=== PATIENT | female | born 1970 | race Caucasian/White ===

== ENCOUNTER → 2019-05-06 09:08 | Outpatient (CLI) | payer OTHER, SELFPAY ==
--- NOTE | 2019-05-06 | DI.MG.S_ITS ---
BILATERAL DIGITAL SCREENING MAMMOGRAM 3D/2D WITH CAD: 05/06/2019 CLINICAL: Routine screening. Comparison is made to exams dated: 05/12/2017 mammogram, 05/25/2015 mammogram, and 04/29/2014 mammogram - [facility]. The tissue of both breasts is heterogeneously dense. This may lower the sensitivity of mammography. Current study was also evaluated with a Computer Aided Detection (CAD) system. No significant masses, calcifications, or other findings are seen in either breast. There has been no significant interval change. IMPRESSION: NEGATIVE There is no mammographic evidence of malignancy. A 1 year screening mammogram is recommended. This exam was interpreted at Station ID: [id number]. NOTE: For mammograms, a report in lay terms will be sent to the patient. Approximately 15% of breast malignancies will not be visualized mammographically. In the management of a palpable breast mass, a negative mammogram must not discourage biopsy of a clinically suspicious lesion. Electronically Signed By: Goran adams/jewel:05/07/2019 06:22:55 letter sent: Normal Exam ACR BI-RADS Category 1: Negative [id number]
== END ==
PROVIDERS: PCP Family Medicine; Visit Provider Obstetrics & Gynecology
DX: Z12.31 Encounter for screening mammogram for malignant neoplasm of breast (principal)
CPT/HCPCS: 77063; 77067

== ENCOUNTER → 2019-11-25 14:25 | Outpatient (CLI) | payer OTHER, SELFPAY ==
[2019-11-25 16:13] LABS: Thyroid Stimulating Hormone 1.13 uIU/mL (0.47-4.68)
== END ==
PROVIDERS: PCP Family Medicine; Visit Provider Internal Medicine Endocrinology, Diabetes & Metabolism
DX: E89.0 Postprocedural hypothyroidism (principal)
CPT/HCPCS: 36415; 84443

== ENCOUNTER → 2020-07-19 17:43 | Outpatient (CLI) | payer OTHER, SELFPAY ==
--- NOTE | 2020-07-19 17:57 | DI.MG.S_ITS ---
Patient Name: KRYSTAL GOLD date: 1970 Sex: F Attending Physician: Alejo Indications: Date: 07/19/2020 17:51 At the request of: REGINE KAPOOR Procedure: MM screening mammo BI BILATERAL DIGITAL SCREENING MAMMOGRAM 3D/2D WITH CAD: 07/19/2020 CLINICAL: Routine screening. Comparison is made to exams dated: 05/06/2019 mammogram, 05/12/2017 mammogram, 05/25/2015 mammogram, 04/29/2014 mammogram, and 11/03/2012 mammogram - [facility]. The tissue of both breasts is heterogeneously dense. This may lower the sensitivity of mammography. Current study was also evaluated with a Computer Aided Detection (CAD) system. No significant masses, calcifications, or other findings are seen in either breast. There has been no significant interval change. IMPRESSION: NEGATIVE There is no mammographic evidence of malignancy. A 1 year screening mammogram is recommended. This exam was interpreted at Station ID: [id number]. NOTE: For mammograms, a report in lay terms will be sent to the patient. Approximately 15% of breast malignancies will not be visualized mammographically. In the management of a palpable breast mass, a negative mammogram must not discourage biopsy of a clinically suspicious lesion. Electronically Signed By: Ray herrera/jewel:07/20/2020 08:46:45 letter sent: Normal Exam ACR BI-RADS Category 1: Negative [id number]
== END ==
PROVIDERS: PCP Family Medicine; Referring Provider Family Medicine; Visit Provider Family Medicine
DX: Z12.31 Encounter for screening mammogram for malignant neoplasm of breast (principal)
CPT/HCPCS: 77063; 77067

== ENCOUNTER → 2020-10-03 11:58 | Outpatient (CLI) | payer OTHER, SELFPAY ==
--- NOTE | 2020-10-03 12:01 | DI.RAD.S_ITS ---
PROCEDURE: XR KNEE LT 3V INDICATIONS: knee pain TECHNIQUE: 3 views of the knee were acquired. COMPARISON: None. FINDINGS: Bones: No fractures or dislocations. No suspicious bony lesions. Mild medial compartment knee joint space narrowing, minimal narrowing at the lateral facet of the patellofemoral joint. Soft tissues: No joint effusion. No suspicious soft tissue calcifications. IMPRESSION: Degenerative osteoarthritic changes as discussed mild at the medial compartment and minimal at the lateral facet of the patellofemoral joint. Dictated by: Cresencio Rasmussen M.D. on 10/03/2020 at 13:05 Approved by: Cresencio Rasmussen M.D. on 10/03/2020 at 13:15
--- NOTE | 2020-10-03 12:01 | DI.RAD.S_ITS ---
PROCEDURE: XR SHOULDER RT MIN 2V INDICATIONS: SHOULDER PAIN TECHNIQUE: 3 views of the shoulder were acquired. COMPARISON: None. FINDINGS: Bones: No fractures or dislocations. No suspicious bony lesions. Visualized ribs appear intact. Soft tissues: No suspicious soft tissue calcifications. IMPRESSION: No trauma found. Mild degenerative osteoarthritic change at the AC joint. Dictated by: Cresencio Rasmussen M.D. on 10/03/2020 at 13:15 Approved by: Cresencio Rasmussen M.D. on 10/03/2020 at 13:16
== END ==
PROVIDERS: PCP Family Medicine; Referring Provider Physical Medicine & Rehabilitation; Visit Provider Physical Medicine & Rehabilitation
DX: M75.40 Impingement syndrome of unspecified shoulder (principal); M19.011 Primary osteoarthritis, right shoulder; M17.12 Unilateral primary osteoarthritis, left knee
CPT/HCPCS: 73030; 73562

== ENCOUNTER → 2021-02-13 11:11 | Outpatient (CLI) | payer OTHER, SELFPAY ==
[2021-02-13] MEDS: COVID-19 VACC #1, MRNA(MOD) 100 MCG/0.5 ML VIAL IM (11:21)
== END ==
PROVIDERS: PCP Family Medicine; Visit Provider Internal Medicine
DX: Z23 Encounter for immunization (principal)
CPT/HCPCS: 0011A; 91301

== ENCOUNTER → 2021-03-14 10:53 | Outpatient (CLI) | payer OTHER, SELFPAY ==
[2021-03-14] MEDS: COVID-19 VACC #2, MRNA(MOD) 100 MCG/0.5 ML VIAL IM (10:57)
== END ==
PROVIDERS: PCP Family Medicine; Visit Provider Internal Medicine
DX: Z23 Encounter for immunization (principal)
CPT/HCPCS: 0012A; 91301

== ENCOUNTER → 2021-03-22 13:53 | Outpatient (CLI) | payer OTHER, SELFPAY ==
[2021-03-22 16:07] LABS: Thyroid Stimulating Hormone 1.26 uIU/mL (0.47-4.68)
== END ==
PROVIDERS: PCP Internal Medicine Endocrinology, Diabetes & Metabolism; Referring Provider Internal Medicine Endocrinology, Diabetes & Metabolism; Visit Provider Internal Medicine Endocrinology, Diabetes & Metabolism
DX: E89.0 Postprocedural hypothyroidism (principal)
CPT/HCPCS: 36415; 84443

== ENCOUNTER 2021-08-09 10:30 | Outpatient (RCR) | payer OTHER, SELFPAY ==
--- NOTE | 2021-07-11 10:30 | PT.OPPOC ---
Physical, Occupational & Speech Therapy At [facility] Current Diagnoses Pain in right shoulder (07/11/21) Pain in left shoulder (07/11/21) Cervicalgia (07/11/21) Visit Care Team Role Provider Type Miladys Dhillon DO Attending Provider Physician Primary Care Provider Referring Provider Specialty: Family Practice Address: [address] [place] [address], [address], [facility] Email: [email or web address] Plan Of Care PT-OP-T Assessment and Plan Start: 07/12/21 08:05 Freq: Status: Active Protocol: Document 07/11/21 10:30 HH (Rec: 07/12/21 08:36 HH [email or web address]) Physical Therapy Assessment Rehab Potential Rehabilitation Potential Good Evaluation Complexity Number of Personal Factors/Comorbidities 0 Number of Body Systems Impaired 1-2 Clinical Presentation at Evaluation Stable Impairments Impairments Activity Tolerance,Functional Activities,Functional Mobility ,Pain,Posture,ROM,Soft Tissue Mobility,Strength Goals return to workout Impairment pt has not been able to return to her workout routine d/t shoulder discomfr Short Term Goal (STG) pt will comply to HEP safely and independently with correct body mechanics STG Duration 4 weeks Forepart Rasper Goal (LTG) pt will return to her ballet class / HIIT routine 2-3 times a week without increase in shoulder/neck discomfort. LTG Duration 8 weeks mobility Impairment difficulty washing her back due limited IR and anterior shoulder pain Short Term Goal (STG) pt will show 15 degrees increase in IR on L shoulder STG Duration 4 weeks Assisted Goal (LTG) pt will be able to reach behind her back up to CT junction without anterior shoulder pain. LTG Duration 8 weeks pain Impairment pt has frequent 3-6/10 neck and shoulder pain Assisted Goal (LTG) pt will have pain no more than 2/10 by improving her overall L shoulder strength and scapular stability LTG Duration 8 weeks Assessment Summary Assessment Marly is a 56yo female here for her chronic L sided neck and shoulder pain since 2017 after she had her bilateral frozen shoulders. Upon assessment, foraminal compression, spurling, shoulder special tests do not reproduce her symptoms. Her shoulder ROM is currently WFL but there is residual weakness with flexion and abduction. There's noticeable excessive engagement with upper trap, SCM during active shoulder AROM which indicates possible lack of shoulder strength and stability. This might contribute to her excessive use of cervical musculature during daily overhead activities. I believe pt will benefit to attempt a course of skilled therapy to improve her overall scapular and GHJ stability, strength and neuromuscular control to reduce mechanical stress on cervical musculature. Physical Therapy Plan Frequency and Duration Frequency of Treatment 1x/Week Duration of Treatment 8 weeks Plan of Care Start Date 07/12/21 Plan of Care End Date 09/10/21 Therapeutic Interventions Therapeutic Interventions Home Exercise Program,Joint Mobilizations,Manual Therapy, Neuromuscular Re-education, Patient/Caregiver Education, Self-Care/Home Management,Soft Tissue Mobilization,Taping, Therapeutic Activities, Therapeutic Exercises Modalities Cold Pack/Ice Massage,Electric Stimulation,Hot Packs, Infrared Therapy,Ultrasound Next Visit Focus/Plan Next Note Type Treatment Note Next Visit Plan check IR, sleeper stretch thoracic L rotation ( open book) neck stretch shoulder ER. hor abd scap row Plan of Care Dates Plan of Care Start Date 07/12/21 Plan of Care End Date 09/10/21 Electronically Signed by: Jennifer Harvey, PT 07/12/21 0827 Please Sign and Return: I have reviewed this Plan of Care and certify that the skilled therapy services above are required to meet the patient?s needs. Physician Signature Date Printed Name and Credentials Clinical Instructor Signature Printed Name and Credentials
--- NOTE | 2021-07-11 10:30 | PT.OIE ---
Current Diagnoses Pain in right shoulder (07/11/21) Pain in left shoulder (07/11/21) Cervicalgia (07/11/21) Past Medical History (Last Updated 10/30/20 @ 13:57 by Kevin Cartwright DO) Frozen shoulder Graves disease (12/31/11) Lateral collateral ligament sprain of knee Left knee DJD Rotator cuff impingement syndrome Supraspinatus tendon tear Past Surgical History (Last Reviewed 10/30/20 @ 13:54 by Kevin Cartwright DO) History of third molar tooth extraction Status post dilation and curettage Status post dilation and curettage Status post loop electrosurgical excision procedure (LEEP) of cervix Visit Care Team Role Provider Type Miladys Dhillon DO Attending Provider Physician Primary Care Provider Referring Provider Specialty: [facility] Address: [address] [place] [address], [address], [facility] Email: [email or web address] Physical Therapy Initial Evaluation PT-OP-A Visit Information Start: 07/12/21 08:05 Freq: Status: Active Protocol: Document 07/11/21 10:30 HH (Rec: 07/12/21 08:36 [email or web address]) Out-Patient Physical Therapy Visit Information Visit Information Visit Type Initial Evaluation Visit Start Time 10:30 Visit Stop Time 11:15 Total Visit Minutes 45 Visit Number 1/6 Number of FORESTRY PATROLMAN Visits 0 Evaluation Information Evaluation Date 07/12/21 PT-OP-B Current Condition Start: 07/12/21 08:05 Freq: Status: Active Protocol: Document 07/11/21 10:30 HH (Rec: 07/12/21 08:36 [email or web address]) Current Condition History of Current Condition Onset Date Current Complaints chronic L sided neck and shoulder pain, occasional headache History of Current Condition Marly is a 50 yo female here for her L sided neck and shoulder pain with occasional tension headache. She states her symptoms started when she had bilateral frozen shoulders from 0528-1055. She noticed that she had to shrug her shoulders to lift her arms before which possibly caused her neck and shoulder pain. She does have tension headache radiating from L upper trapezius to base of her skull approx. 2x/month. She does not what makes her symptoms worse/ better. Denies tingling / numbness/ radiating pain to her arm. She has a sedentary job and would like to gradually return to her exercise routine few times a week which includes practicing ballet, some circuit training /HIIT . Prior Treatments and Tests PT for her frozen shoulders PT-OP-C Subjective Start: 07/12/21 08:05 Freq: Status: Active Protocol: Document 07/11/21 10:30 HH (Rec: 07/12/21 08:36 HH [email or web address]) Patient Questionnaires Neck Disability Index NDI Score 2.27 Neck Disability Index Impairment 1 to 19% Impaired (Score 1-9) OP-PT Pain Assessment Location L upper trap Intensity 3 Scale Used Numeric (0 - 10) Description Aching,Dull Frequency Frequent Variations/Patterns unknown Other Pain Aggravating Factors unknown L neck pain Intensity 6 Description Aching,Dull Frequency Frequent Variations/Patterns unknown Other Pain Aggravating Factors unknown PT-OP-E Functional Tests Start: 07/12/21 08:05 Freq: Status: Active Protocol: Document 07/11/21 10:30 HH (Rec: 07/12/21 08:36 HH [email or web address]) Functional Tests Apley's Scratch Test Action 2- Left CT junction Action 2- Right CT junction Action 3- Left T3, pain at anterior shoulder Action 3- Right CT junction PT-OP-F Manual Assessment Start: 07/12/21 08:05 Freq: Status: Active Protocol: Document 07/11/21 10:30 HH (Rec: 07/12/21 08:36 HH [email or web address]) Manual Assessments Soft Tissue Assessment Soft Tissue Mobility Assessment hypertonicity at L upper trap with trigger point superior to medial scapular border. PT-OP-K Range of Motion Start: 07/12/21 08:05 Freq: Status: Active Protocol: Document 07/11/21 10:30 HH (Rec: 07/12/21 08:36 HH [email or web address]) Cervical Spine Range of Motion Cervical Spine Active Degrees Testing Position Sitting Flexion 62 Extension 90 Rotation Left 74 Rotation Right 74 Lateral Flexion Left 52 Lateral Flexion Right 55 Comments no discomfort noted Lumbar Spine Range of Motion Lumbar Spine Active Degrees Comments thoracic rotation to L= 40 degrees (seated) to R = 53 degrees (seated) Shoulder Goniometric Range of Motion Shoulder Right Active Shoulder ROM WFL Yes Left Active Shoulder ROM WFL Yes External Rotation at 90 degrees 90 Abduction Internal Rotation Behind Back (text) 60 Comments excessive upper trap, scalene and SCM engagement during L shoulder abduction and fleixon PT-OP-L Special Tests Start: 07/12/21 08:05 Freq: Status: Active Protocol: Document 07/11/21 10:30 HH (Rec: 07/12/21 08:36 HH [email or web address]) Special Tests Cervical Spine Special Tests Traction Test Results -ve Spurling's Test Test Results -ve Foraminal Compression Test Results -ve Shoulder Special Tests Harrison Ajit Impingement Test Results -ve Empty Can Test Results -ve Drop Arm Rotator Cuff Test Results -ve [place] Test Test Results -ve Neer Impingement Test Results -ve PT-OP-M Strength Start: 07/12/21 08:05 Freq: Status: Active Protocol: Document 07/11/21 10:30 HH (Rec: 07/12/21 08:36 HH [email or web address]) Shoulder Strength Shoulder Manual Muscle Testing Right Flexion 4+ Good+ Extension 4+ Good+ Abduction (C5) 4+ Good+ Adduction 4+ Good+ Left Flexion 4- Good- Extension 4- Good- Abduction (C5) 4- Good- Adduction 4+ Good+ Comments excessive upper trap, scalene and SCM engagement during L shoulder abduction and fleixon PT-OP-T Assessment and Plan Start: 07/12/21 08:05 Freq: Status: Active Protocol: Document 07/11/21 10:30 HH (Rec: 07/12/21 08:36 HH [email or web address]) Physical Therapy Assessment Rehab Potential Rehabilitation Potential Good Evaluation Complexity Number of Personal Factors/Comorbidities 0 Number of Body Systems Impaired 1-2 Clinical Presentation at Evaluation Stable Impairments Impairments Activity Tolerance,Functional Activities,Functional Mobility ,Pain,Posture,ROM,Soft Tissue Mobility,Strength Goals return to workout Impairment pt has not been able to return to her workout routine d/t shoulder discomfr Short Term Goal (STG) pt will comply to HEP safely and independently with correct body mechanics STG Duration 4 weeks Operating Engineer Apprentice Goal (LTG) pt will return to her ballet class / HIIT routine 2-3 times a week without increase in shoulder/neck discomfort. LTG Duration 8 weeks mobility Impairment difficulty washing her back due limited IR and anterior shoulder pain Short Term Goal (STG) pt will show 15 degrees increase in IR on L shoulder STG Duration 4 weeks Senior Living Goal (LTG) pt will be able to reach behind her back up to CT junction without anterior shoulder pain. 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 Upon assessment, foraminal compression, spurling, shoulder special tests do not reproduce her symptoms. Her shoulder ROM is currently WFL but there is residual weakness with flexion and abduction. There's noticeable excessive engagement with upper trap, SCM during active shoulder AROM which indicates possible lack of shoulder strength and stability. This might contribute to her excessive use of cervical musculature during daily overhead activities. I believe pt will benefit to attempt a course of skilled therapy to improve her overall scapular and GHJ stability, strength and neuromuscular control to reduce mechanical stress on cervical musculature. Physical Therapy Plan Frequency and Duration Frequency of Treatment 1x/Week Duration of Treatment 8 weeks Plan of Care Start Date 07/12/21 Plan of Care End Date 09/10/21 Therapeutic Interventions Therapeutic Interventions Home Exercise Program,Joint Mobilizations,Manual Therapy, Neuromuscular Re-education, Patient/Caregiver Education, Self-Care/Home Management,Soft Tissue Mobilization,Taping, Therapeutic Activities, Therapeutic Exercises Modalities Cold Pack/Ice Massage,Electric Stimulation,Hot Packs, Infrared Therapy,Ultrasound Next Visit Focus/Plan Next Note Type Treatment Note Next Visit Plan check IR, sleeper stretch thoracic L rotation ( open book) neck stretch shoulder ER. hor abd scap row
--- NOTE | 2021-07-24 11:23 | PT.OTN ---
Current Diagnoses Pain in right shoulder (07/24/21) Pain in left shoulder (07/24/21) Cervicalgia (07/24/21) Physical Therapy Treatment Note PT-OP-A Visit Information Start: 07/12/21 08:05 Freq: Status: Active Protocol: Document 07/24/21 10:35 HH (Rec: 07/24/21 11:22 [id number]) Out-Patient Physical Therapy Visit Information Visit Information Visit Type Treatment Note Visit Start Time 10:33 Visit Stop Time 11:15 Total Visit Minutes 42 Visit Number 2/6 Number of PROPERTY MAINTENANCE TECHNICIAN Visits 0 PT-OP-B Current Condition Start: 07/12/21 08:05 Freq: Status: Active Protocol: Document 07/11/21 10:30 HH (Rec: 07/12/21 08:36 [email or web address]) Current Condition History of Current Condition Onset Date Current Complaints chronic L sided neck and shoulder pain, occasional headache History of Current Condition Marly is a 50 yo female here for her L sided neck and shoulder pain with occasional tension headache. She states her symptoms started when she had bilateral frozen shoulders from 7680-2311. She noticed that she had to shrug her shoulders to lift her arms before which possibly caused her neck and shoulder pain. She does have tension headache radiating from L upper trapezius to base of her skull approx. 2x/month. She does not what makes her symptoms worse/ better. Denies tingling / numbness/ radiating pain to her arm. She has a sedentary job and would like to gradually return to her exercise routine few times a week which includes practicing ballet, some circuit training /HIIT . Prior Treatments and Tests PT for her frozen shoulders PT-OP-C Subjective Start: 07/12/21 08:05 Freq: Status: Active Protocol: Document 07/24/21 10:35 HH (Rec: 07/24/21 11:22 [id number]) OP-PT Subjective Patient Comments Patient Comments I just got back from a trip. I did have a tension headahce one day but it went away. PT-OP-E Functional Tests Start: 07/12/21 08:05 Freq: Status: Active Protocol: Document 07/11/21 10:30 HH (Rec: 07/12/21 08:36 [email or web address]) Functional Tests Silasey's Scratch Test Action 2- Left CT junction Action 2- Right CT junction Action 3- Left T3, pain at anterior shoulder Action 3- Right CT junction PT-OP-F Manual Assessment Start: 07/12/21 08:05 Freq: Status: Active Protocol: Document 07/11/21 10:30 HH (Rec: 07/12/21 08:36 HH [email or web address]) Manual Assessments Soft Tissue Assessment Soft Tissue Mobility Assessment hypertonicity at L upper trap with trigger point superior to medial scapular border. PT-OP-K Range of Motion Start: 07/12/21 08:05 Freq: Status: Active Protocol: Document 07/11/21 10:30 HH (Rec: 07/12/21 08:36 HH [email or web address]) Cervical Spine Range of Motion Cervical Spine Active Degrees Testing Position Sitting Flexion 62 Extension 90 Rotation Left 74 Rotation Right 74 Lateral Flexion Left 52 Lateral Flexion Right 55 Comments no discomfort noted Lumbar Spine Range of Motion Lumbar Spine Active Degrees Comments thoracic rotation to L= 40 degrees (seated) to R = 53 degrees (seated) Shoulder Goniometric Range of Motion Shoulder Right Active Shoulder ROM WFL Yes Left Active Shoulder ROM WFL Yes External Rotation at 90 degrees 90 Abduction Internal Rotation Behind Back (text) 60 Comments excessive upper trap, scalene and SCM engagement during L shoulder abduction and fleixon PT-OP-L Special Tests Start: 07/12/21 08:05 Freq: Status: Active Protocol: Document 07/11/21 10:30 HH (Rec: 07/12/21 08:36 HH [email or web address]) Special Tests Cervical Spine Special Tests Traction Test Results -ve Spurling's Test Test Results -ve Foraminal Compression Test Results -ve Shoulder Special Tests Harrison Ajit Impingement Test Results -ve Empty Can Test Results -ve Drop Arm Rotator Cuff Test Results -ve [place] Test Test Results -ve Neer Impingement Test Results -ve PT-OP-M Strength Start: 07/12/21 08:05 Freq: Status: Active Protocol: Document 07/11/21 10:30 HH (Rec: 07/12/21 08:36 HH [email or web address]) Shoulder Strength Shoulder Manual Muscle Testing Right Flexion 4+ Good+ Extension 4+ Good+ Abduction (C5) 4+ Good+ Adduction 4+ Good+ Left Flexion 4- Good- Extension 4- Good- Abduction (C5) 4- Good- Adduction 4+ Good+ Comments excessive upper trap, scalene and SCM engagement during L shoulder abduction and fleixon PT-OP-Q Treatments Start: 07/12/21 08:05 Freq: Status: Active Protocol: Document 07/24/21 10:35 (Rec: 07/24/21 11:22 [id number]) Therapeutic Exercises Sitting Exercises horizontal abd Sitting Exercise Name shd pull apart Resistance level 1 band Reps/Minutes 10 x 2 Comments for HEP Standing Exercises shoulder abd Standing Exercise Name scaption Resistance level 1 band Reps/Minutes 10x2 Comments for HEP shoulder flexion Resistance level 1 band Reps/Minutes 10 x2 Comments for HEP scap row Resistance level 1 band Reps/Minutes 10 x2 Comments for HEP Manual Therapy Treatment Soft Tissue Mobilization levator scap Mobilization Type Myofascial Release,Sustained Pressure,Trigger Point Release Intensity/Depth Moderate Body Position Supine scalenes Mobilization Type Myofascial Release,Sustained Pressure,Trigger Point Release Intensity/Depth Moderate Body Position Supine PT-OP-T Assessment and Plan Start: 07/12/21 08:05 Freq: Status: Active Protocol: Document 07/24/21 10:35 (Rec: 07/24/21 11:22 [id number]) Physical Therapy Assessment Goals return to workout Impairment pt has not been able to return to her workout routine d/t shoulder discomfr Short Term Goal (STG) pt will comply to HEP safely and independently with correct body mechanics STG Duration 4 weeks Exhaust Tender Goal (LTG) pt will return to her ballet class / HIIT routine 2-3 times a week without increase in shoulder/neck discomfort. LTG Duration 8 weeks mobility Impairment difficulty washing her back due limited IR and anterior shoulder pain Short Term Goal (STG) pt will show 15 degrees increase in IR on L shoulder STG Duration 4 weeks Skilled Nursing Goal (LTG) pt will be able to reach behind her back up to CT junction without anterior shoulder pain. LTG Duration 8 weeks pain Impairment pt has frequent 3-6/10 neck and shoulder pain Exhaust Tender Goal (LTG) pt will have pain no more than 2/10 by improving her overall L shoulder strength and scapular stability LTG Duration 8 weeks Assessment Summary Assessment first tx session today. Spent time using a mirror to educate pt on preventing L shoulder hike for shoulder movements. Started shoulder strnegthening and stabilization ex and she cintia well with good mechanics. Will assess her symptoms next week. Physical Therapy Plan Frequency and Duration Frequency of Treatment 1x/Week Duration of Treatment 8 weeks Plan of Care Start Date 07/12/21 Plan of Care End Date 09/10/21 Therapeutic Interventions Therapeutic Interventions Home Exercise Program,Joint Mobilizations,Manual Therapy, Neuromuscular Re-education, Patient/Caregiver Education, Self-Care/Home Management,Soft Tissue Mobilization,Taping, Therapeutic Activities, Therapeutic Exercises Modalities Cold Pack/Ice Massage,Electric Stimulation,Hot Packs, Infrared Therapy,Ultrasound Next Visit Focus/Plan Next Note Type Treatment Note Next Visit Plan check IR, sleeper stretch thoracic L rotation ( open book) neck stretch shoulder ER. hor abd scap row
--- NOTE | 2021-07-27 12:14 | PT.OTN ---
Current Diagnoses Pain in right shoulder (07/27/21) Pain in left shoulder (07/27/21) Cervicalgia (07/27/21) Physical Therapy Treatment Note PT-OP-A Visit Information Start: 07/12/21 08:05 Freq: Status: Active Protocol: Document 07/27/21 11:24 HH (Rec: 07/27/21 12:14 [id number]) Out-Patient Physical Therapy Visit Information Visit Information Visit Type Treatment Note Visit Start Time 11:15 Visit Stop Time 12:08 Total Visit Minutes 53 Visit Number 3/6 Number of CHEMICAL ENGINEERING TECHNOLOGIST Visits 0 PT-OP-B Current Condition Start: 07/12/21 08:05 Freq: Status: Active Protocol: Document 07/11/21 10:30 HH (Rec: 07/12/21 08:36 [email or web address]) Current Condition History of Current Condition Onset Date Current Complaints chronic L sided neck and shoulder pain, occasional headache History of Current Condition Marly is a 50 yo female here for her L sided neck and shoulder pain with occasional tension headache. She states her symptoms started when she had bilateral frozen shoulders from [id number]. She noticed that she had to shrug her shoulders to lift her arms before which possibly caused her neck and shoulder pain. She does have tension headache radiating from L upper trapezius to base of her skull approx. 2x/month. She does not what makes her symptoms worse/ better. Denies tingling / numbness/ radiating pain to her arm. She has a sedentary job and would like to gradually return to her exercise routine few times a week which includes practicing ballet, some circuit training /HIIT . Prior Treatments and Tests PT for her frozen shoulders PT-OP-C Subjective Start: 07/12/21 08:05 Freq: Status: Active Protocol: Document 07/27/21 11:24 HH (Rec: 07/27/21 12:14 [id number]) OP-PT Subjective Patient Comments Patient Comments I feel good about last visit then i did a workout yesterday and im pretty sore. Patient Reported Progress Improving PT-OP-E Functional Tests Start: 07/12/21 08:05 Freq: Status: Active Protocol: Document 07/11/21 10:30 HH (Rec: 07/12/21 08:36 [email or web address]) Functional Tests Apley's Scratch Test Action 2- Left CT junction Action 2- Right CT junction Action 3- Left T3, pain at anterior shoulder Action 3- Right CT junction PT-OP-F Manual Assessment Start: 07/12/21 08:05 Freq: Status: Active Protocol: Document 07/11/21 10:30 HH (Rec: 07/12/21 08:36 HH [email or web address]) Manual Assessments Soft Tissue Assessment Soft Tissue Mobility Assessment hypertonicity at L upper trap with trigger point superior to medial scapular border. PT-OP-K Range of Motion Start: 07/12/21 08:05 Freq: Status: Active Protocol: Document 07/11/21 10:30 HH (Rec: 07/12/21 08:36 HH [email or web address]) Cervical Spine Range of Motion Cervical Spine Active Degrees Testing Position Sitting Flexion 62 Extension 90 Rotation Left 74 Rotation Right 74 Lateral Flexion Left 52 Lateral Flexion Right 55 Comments no discomfort noted Lumbar Spine Range of Motion Lumbar Spine Active Degrees Comments thoracic rotation to L= 40 degrees (seated) to R = 53 degrees (seated) Shoulder Goniometric Range of Motion Shoulder Right Active Shoulder ROM WFL Yes Left Active Shoulder ROM WFL Yes External Rotation at 90 degrees 90 Abduction Internal Rotation Behind Back (text) 60 Comments excessive upper trap, scalene and SCM engagement during L shoulder abduction and fleixon PT-OP-L Special Tests Start: 07/12/21 08:05 Freq: Status: Active Protocol: Document 07/11/21 10:30 HH (Rec: 07/12/21 08:36 HH [email or web address]) Special Tests Cervical Spine Special Tests Traction Test Results -ve Spurling's Test Test Results -ve Foraminal Compression Test Results -ve Shoulder Special Tests Harrison Ajit Impingement Test Results -ve Empty Can Test Results -ve Drop Arm Rotator Cuff Test Results -ve Gillespie Test Test Results -ve Neer Impingement Test Results -ve PT-OP-M Strength Start: 07/12/21 08:05 Freq: Status: Active Protocol: Document 07/11/21 10:30 HH (Rec: 07/12/21 08:36 HH [email or web address]) Shoulder Strength Shoulder Manual Muscle Testing Right Flexion 4+ Good+ Extension 4+ Good+ Abduction (C5) 4+ Good+ Adduction 4+ Good+ Left Flexion 4- Good- Extension 4- Good- Abduction (C5) 4- Good- Adduction 4+ Good+ Comments excessive upper trap, scalene and SCM engagement during L shoulder abduction and fleixon PT-OP-Q Treatments Start: 07/12/21 08:05 Freq: Status: Active Protocol: Document 07/27/21 11:24 HH (Rec: 07/27/21 12:14 [id number]) Cardio Equipment Upper Body Ergometer (UBE) Duration (Minutes) 5 Other 30f/b Therapeutic Exercises Sitting Exercises lynda Sitting Exercise Name flex and abd Side left Reps/Minutes 4 mins Standing Exercises wall slide Standing Exercise Name forward wall slide Side bilateral Equipment Used towel Reps/Minutes 10 x2 wall clock Standing Exercise Name clockwise and anticlockwise Side bilateral Equipment Used towel Reps/Minutes 10 x2 Manual Therapy Treatment Soft Tissue Mobilization RTC Mobilization Type Sustained Pressure,Trigger Point Release Intensity/Depth Moderate Body Position Sidelying Comments teresminor and infraspinatus levator scap Mobilization Type Myofascial Release,Sustained Pressure,Trigger Point Release Intensity/Depth Moderate Body Position Supine Comments proximal scalenes Mobilization Type Myofascial Release,Sustained Pressure,Trigger Point Release Intensity/Depth Moderate Body Position Supine PT-OP-T Assessment and Plan Start: 07/12/21 08:05 Freq: Status: Active Protocol: Document 07/27/21 11:24 HH (Rec: 07/27/21 12:14 [id number]) Physical Therapy Assessment Goals return to workout Impairment pt has not been able to return to her workout routine d/t shoulder discomfr Short Term Goal (STG) pt will comply to HEP safely and independently with correct body mechanics STG Duration 4 weeks Half-Way Goal (LTG) pt will return to her ballet class / HIIT routine 2-3 times a week without increase in shoulder/neck discomfort. LTG Duration 8 weeks mobility Impairment difficulty washing her back due limited IR and anterior shoulder pain Short Term Goal (STG) pt will show 15 degrees increase in IR on L shoulder STG Duration 4 weeks Pulp Roller Goal (LTG) pt will be able to reach behind her back up to CT junction without anterior shoulder pain. LTG Duration 8 weeks pain Impairment pt has frequent 3-6/10 neck and shoulder pain Pulp Roller Goal (LTG) pt will have pain no more than 2/10 by improving her overall L shoulder strength and scapular stability LTG Duration 8 weeks Assessment Summary Assessment pt did her first upperbody workout yesterday with dips, push ups and scap row. No pain noted but soreness. This session focus on active recovery, scap control and mobility ex. She has no c/o. and show improvedL shoulder ctonrol at end range flexion and abd. Physical Therapy Plan Frequency and Duration Frequency of Treatment 1x/Week Duration of Treatment 8 weeks Plan of Care Start Date 07/12/21 Plan of Care End Date 09/10/21 Therapeutic Interventions Therapeutic Interventions Home Exercise Program,Joint Mobilizations,Manual Therapy, Neuromuscular Re-education, Patient/Caregiver Education, Self-Care/Home Management,Soft Tissue Mobilization,Taping, Therapeutic Activities, Therapeutic Exercises Modalities Cold Pack/Ice Massage,Electric Stimulation,Hot Packs, Infrared Therapy,Ultrasound Next Visit Focus/Plan Next Note Type Treatment Note Next Visit Plan check IR, sleeper stretch thoracic L rotation ( open book) neck stretch shoulder ER. hor abd scap row
--- NOTE | 2021-07-31 11:17 | PT.OTN ---
Current Diagnoses Pain in right shoulder (07/31/21) Pain in left shoulder (07/31/21) Cervicalgia (07/31/21) Physical Therapy Treatment Note PT-OP-A Visit Information Start: 07/12/21 08:05 Freq: Status: Active Protocol: Document 07/31/21 10:30 HH (Rec: 07/31/21 11:17 [id number]) Out-Patient Physical Therapy Visit Information Visit Information Visit Type Treatment Note Visit Start Time 10:35 Visit Stop Time 11:15 Total Visit Minutes 40 Visit Number 4/6 Number of WRAP TURNER Visits 0 PT-OP-B Current Condition Start: 07/12/21 08:05 Freq: Status: Active Protocol: Document 07/11/21 10:30 HH (Rec: 07/12/21 08:36 [email or web address]) Current Condition History of Current Condition Onset Date Current Complaints chronic L sided neck and shoulder pain, occasional headache History of Current Condition Marly is a 50 yo female here for her L sided neck and shoulder pain with occasional tension headache. She states her symptoms started when she had bilateral frozen shoulders from [id number]. She noticed that she had to shrug her shoulders to lift her arms before which possibly caused her neck and shoulder pain. She does have tension headache radiating from L upper trapezius to base of her skull approx. 2x/month. She does not what makes her symptoms worse/ better. Denies tingling / numbness/ radiating pain to her arm. She has a sedentary job and would like to gradually return to her exercise routine few times a week which includes practicing ballet, some circuit training /HIIT . Prior Treatments and Tests PT for her frozen shoulders PT-OP-C Subjective Start: 07/12/21 08:05 Freq: Status: Active Protocol: Document 07/31/21 10:30 HH (Rec: 07/31/21 11:17 [id number]) OP-PT Subjective Patient Comments Patient Comments My shoulder is feeling pretty good and i havent had any discomfort so far. But i do notice my L shoulder is little weaker. Patient Reported Progress Improving PT-OP-E Functional Tests Start: 07/12/21 08:05 Freq: Status: Active Protocol: Document 07/11/21 10:30 HH (Rec: 07/12/21 08:36 [email or web address]) Functional Tests Apley's Scratch Test Action 2- Left CT junction Action 2- Right CT junction Action 3- Left T3, pain at anterior shoulder Action 3- Right CT junction PT-OP-F Manual Assessment Start: 07/12/21 08:05 Freq: Status: Active Protocol: Document 07/11/21 10:30 HH (Rec: 07/12/21 08:36 HH [email or web address]) Manual Assessments Soft Tissue Assessment Soft Tissue Mobility Assessment hypertonicity at L upper trap with trigger point superior to medial scapular border. PT-OP-K Range of Motion Start: 07/12/21 08:05 Freq: Status: Active Protocol: Document 07/11/21 10:30 HH (Rec: 07/12/21 08:36 HH [email or web address]) Cervical Spine Range of Motion Cervical Spine Active Degrees Testing Position Sitting Flexion 62 Extension 90 Rotation Left 74 Rotation Right 74 Lateral Flexion Left 52 Lateral Flexion Right 55 Comments no discomfort noted Lumbar Spine Range of Motion Lumbar Spine Active Degrees Comments thoracic rotation to L= 40 degrees (seated) to R = 53 degrees (seated) Shoulder Goniometric Range of Motion Shoulder Right Active Shoulder ROM WFL Yes Left Active Shoulder ROM WFL Yes External Rotation at 90 degrees 90 Abduction Internal Rotation Behind Back (text) 60 Comments excessive upper trap, scalene and SCM engagement during L shoulder abduction and fleixon PT-OP-L Special Tests Start: 07/12/21 08:05 Freq: Status: Active Protocol: Document 07/11/21 10:30 HH (Rec: 07/12/21 08:36 HH [email or web address]) Special Tests Cervical Spine Special Tests Traction Test Results -ve Spurling's Test Test Results -ve Foraminal Compression Test Results -ve Shoulder Special Tests Harrison Ajit Impingement Test Results -ve Empty Can Test Results -ve Drop Arm Rotator Cuff Test Results -ve [place] Test Test Results -ve Neer Impingement Test Results -ve PT-OP-M Strength Start: 07/12/21 08:05 Freq: Status: Active Protocol: Document 07/11/21 10:30 HH (Rec: 07/12/21 08:36 HH [email or web address]) Shoulder Strength Shoulder Manual Muscle Testing Right Flexion 4+ Good+ Extension 4+ Good+ Abduction (C5) 4+ Good+ Adduction 4+ Good+ Left Flexion 4- Good- Extension 4- Good- Abduction (C5) 4- Good- Adduction 4+ Good+ Comments excessive upper trap, scalene and SCM engagement during L shoulder abduction and fleixon PT-OP-Q Treatments Start: 07/12/21 08:05 Freq: Status: Active Protocol: Document 07/31/21 10:30 HH (Rec: 07/31/21 11:17 [id number]) Cardio Equipment Upper Body Ergometer (UBE) Duration (Minutes) 5 Other 30f/b Therapeutic Exercises Prone Exercises prone Y Prone Exercise Name unilateral Side bilateral Reps/Minutes 8x2 prone T Prone Exercise Name unilateral Side bilateral Reps/Minutes 8x 2 Sitting Exercises lynda Sitting Exercise Name flex and abd Side left Reps/Minutes 4 mins horizontal abd Sitting Exercise Name shd pull apart Resistance level 1 band Reps/Minutes 10 x 2 Comments for HEP Standing Exercises wall slide Standing Exercise Name forward wall slide Side bilateral Equipment Used towel Reps/Minutes 10 x2 wall clock Standing Exercise Name clockwise and anticlockwise Side bilateral Equipment Used towel then no towel Reps/Minutes 10 x2 scap row Resistance level 1 band Reps/Minutes 10 x2 PT-OP-T Assessment and Plan Start: 07/12/21 08:05 Freq: Status: Active Protocol: Document 07/31/21 10:30 HH (Rec: 07/31/21 11:17 [id number]) Physical Therapy Assessment Goals return to workout Impairment pt has not been able to return to her workout routine d/t shoulder discomfr Short Term Goal (STG) pt will comply to HEP safely and independently with correct body mechanics STG Duration 4 weeks Detention Goal (LTG) pt will return to her ballet class / HIIT routine 2-3 times a week without increase in shoulder/neck discomfort. LTG Duration 8 weeks mobility Impairment difficulty washing her back due limited IR and anterior shoulder pain Short Term Goal (STG) pt will show 15 degrees increase in IR on L shoulder STG Duration 4 weeks Baseball Inspector And Repairer Goal (LTG) pt will be able to reach behind her back up to CT junction without anterior shoulder pain. LTG Duration 8 weeks pain Impairment pt has frequent 3-6/10 neck and shoulder pain Detention Goal (LTG) pt will have pain no more than 2/10 by improving her overall L shoulder strength and scapular stability LTG Duration 8 weeks Assessment Summary Assessment pt has no c/o since last visit . improved scap stability and strength noted today. She completed a whole session of trip on end range strength and scap stabilization and she cintia it very well. Physical Therapy Plan Frequency and Duration Frequency of Treatment 1x/Week Duration of Treatment 8 weeks Plan of Care Start Date 07/12/21 Plan of Care End Date 09/10/21 Therapeutic Interventions Therapeutic Interventions Home Exercise Program,Joint Mobilizations,Manual Therapy, Neuromuscular Re-education, Patient/Caregiver Education, Self-Care/Home Management,Soft Tissue Mobilization,Taping, Therapeutic Activities, Therapeutic Exercises Modalities Cold Pack/Ice Massage,Electric Stimulation,Hot Packs, Infrared Therapy,Ultrasound Next Visit Focus/Plan Next Note Type Treatment Note Next Visit Plan check IR, sleeper stretch thoracic L rotation ( open book) neck stretch shoulder ER. hor abd scap row
--- NOTE | 2021-08-09 11:19 | PT.OTN ---
Current Diagnoses Pain in right shoulder (08/09/21) Pain in left shoulder (08/09/21) Cervicalgia (08/09/21) Physical Therapy Treatment Note PT-OP-A Visit Information Start: 07/12/21 08:05 Freq: Status: Active Protocol: Document 08/09/21 10:39 HH (Rec: 08/09/21 11:19 [email or web address]) Out-Patient Physical Therapy Visit Information Visit Information Visit Type Treatment Note Visit Start Time 10:33 Visit Stop Time 11:15 Total Visit Minutes 42 Visit Number 5/6 Number of IT INFRASTRUCTURE PROJECT MANAGER Visits 0 PT-OP-B Current Condition Start: 07/12/21 08:05 Freq: Status: Active Protocol: Document 07/11/21 10:30 HH (Rec: 07/12/21 08:36 [email or web address]) Current Condition History of Current Condition Onset Date Current Complaints chronic L sided neck and shoulder pain, occasional headache History of Current Condition Marly is a 50 yo female here for her L sided neck and shoulder pain with occasional tension headache. She states her symptoms started when she had bilateral frozen shoulders from [id number]. She noticed that she had to shrug her shoulders to lift her arms before which possibly caused her neck and shoulder pain. She does have tension headache radiating from L upper trapezius to base of her skull approx. 2x/month. She does not what makes her symptoms worse/ better. Denies tingling / numbness/ radiating pain to her arm. She has a sedentary job and would like to gradually return to her exercise routine few times a week which includes practicing ballet, some circuit training /HIIT . Prior Treatments and Tests PT for her frozen shoulders PT-OP-C Subjective Start: 07/12/21 08:05 Freq: Status: Active Protocol: Document 08/09/21 10:39 HH (Rec: 08/09/21 11:19 [id number]) OP-PT Subjective Patient Comments Patient Comments Im doing really well and my neck doesnt really bother me. I only feel it one time when i sat in front of computer for awhile but it went away. Patient Reported Progress Improving PT-OP-E Functional Tests Start: 07/12/21 08:05 Freq: Status: Active Protocol: Document 07/11/21 10:30 HH (Rec: 07/12/21 08:36 [email or web address]) Functional Tests Apley's Scratch Test Action 2- Left CT junction Action 2- Right CT junction Action 3- Left T3, pain at anterior shoulder Action 3- Right CT junction PT-OP-F Manual Assessment Start: 07/12/21 08:05 Freq: Status: Active Protocol: Document 07/11/21 10:30 HH (Rec: 07/12/21 08:36 HH [email or web address]) Manual Assessments Soft Tissue Assessment Soft Tissue Mobility Assessment hypertonicity at L upper trap with trigger point superior to medial scapular border. PT-OP-K Range of Motion Start: 07/12/21 08:05 Freq: Status: Active Protocol: Document 07/11/21 10:30 HH (Rec: 07/12/21 08:36 [email or web address]) Cervical Spine Range of Motion Cervical Spine Active Degrees Testing Position Sitting Flexion 62 Extension 90 Rotation Left 74 Rotation Right 74 Lateral Flexion Left 52 Lateral Flexion Right 55 Comments no discomfort noted Lumbar Spine Range of Motion Lumbar Spine Active Degrees Comments thoracic rotation to L= 40 degrees (seated) to R = 53 degrees (seated) Shoulder Goniometric Range of Motion Shoulder Right Active Shoulder ROM WFL Yes Left Active Shoulder ROM WFL Yes External Rotation at 90 degrees 90 Abduction Internal Rotation Behind Back (text) 60 Comments excessive upper trap, scalene and SCM engagement during L shoulder abduction and fleixon PT-OP-L Special Tests Start: 07/12/21 08:05 Freq: Status: Active Protocol: Document 07/11/21 10:30 HH (Rec: 07/12/21 08:36 [email or web address]) Special Tests Cervical Spine Special Tests Traction Test Results -ve Spurling's Test Test Results -ve Foraminal Compression Test Results -ve Shoulder Special Tests Harrison Ajit Impingement Test Results -ve Empty Can Test Results -ve Drop Arm Rotator Cuff Test Results -ve [place] Test Test Results -ve Neer Impingement Test Results -ve PT-OP-M Strength Start: 07/12/21 08:05 Freq: Status: Active Protocol: Document 07/11/21 10:30 HH (Rec: 07/12/21 08:36 [email or web address]) Shoulder Strength Shoulder Manual Muscle Testing Right Flexion 4+ Good+ Extension 4+ Good+ Abduction (C5) 4+ Good+ Adduction 4+ Good+ Left Flexion 4- Good- Extension 4- Good- Abduction (C5) 4- Good- Adduction 4+ Good+ Comments excessive upper trap, scalene and SCM engagement during L shoulder abduction and fleixon PT-OP-Q Treatments Start: 07/12/21 08:05 Freq: Status: Active Protocol: Document 08/09/21 10:39 (Rec: 08/09/21 11:19 [id number]) Therapeutic Exercises Supine Exercises shoulder punch Equipment Used PVC punch Reps/Minutes 10 x2 Sitting Exercises lat pull down Equipment Used 30lbs Reps/Minutes 10 x2 shoulder press Equipment Used 3lbs DB Reps/Minutes 10x2 Standing Exercises wall slide Standing Exercise Name forward wall slide Side bilateral Equipment Used towel Reps/Minutes 10 x2 wall clock Standing Exercise Name clockwise and anticlockwise Side bilateral Equipment Used towel then no towel Reps/Minutes 10 x2 scap row Resistance 30lbs cable Reps/Minutes 10 x2 PT-OP-T Assessment and Plan Start: 07/12/21 08:05 Freq: Status: Active Protocol: Document 08/09/21 10:39 (Rec: 08/09/21 11:19 [id number]) Physical Therapy Assessment Goals return to workout Impairment pt has not been able to return to her workout routine d/t shoulder discomfr Short Term Goal (STG) pt will comply to HEP safely and independently with correct body mechanics STG Duration 4 weeks Intermediate Goal (LTG) pt will return to her ballet class / HIIT routine 2-3 times a week without increase in shoulder/neck discomfort. LTG Duration 8 weeks mobility Impairment difficulty washing her back due limited IR and anterior shoulder pain Short Term Goal (STG) pt will show 15 degrees increase in IR on L shoulder STG Duration 4 weeks Instructor Bridge Goal (LTG) pt will be able to reach behind her back up to CT junction without anterior shoulder pain. LTG Duration 8 weeks pain Impairment pt has frequent 3-6/10 neck and shoulder pain Instructor Bridge Goal (LTG) pt will have pain no more than 2/10 by improving her overall L shoulder strength and scapular stability LTG Duration 8 weeks Assessment Summary Assessment pt has been progressing well without neck discomfort. Her shoulder strength and stability also improved 4+/5 bilaterally. Recommended pt to continue HEP and keep one f/u visit 08/30 for final check up before DC Physical Therapy Plan Frequency and Duration Frequency of Treatment 1x/Week Duration of Treatment 8 weeks Plan of Care Start Date 07/12/21 Plan of Care End Date 09/10/21 Therapeutic Interventions Therapeutic Interventions Home Exercise Program,Joint Mobilizations,Manual Therapy, Neuromuscular Re-education, Patient/Caregiver Education, Self-Care/Home Management,Soft Tissue Mobilization,Taping, Therapeutic Activities, Therapeutic Exercises Modalities Cold Pack/Ice Massage,Electric Stimulation,Hot Packs, Infrared Therapy,Ultrasound Next Visit Focus/Plan Next Note Type Treatment Note Next Visit Plan check IR, sleeper stretch thoracic L rotation ( open book) neck stretch shoulder ER. hor abd scap row
--- NOTE | 2021-08-30 08:42 | PT.OPDS ---
Current Diagnoses Pain in right shoulder (08/09/21) Pain in left shoulder (08/09/21) Cervicalgia (08/09/21) Visit Care Team Role Provider Type Miladys Dhillon DO Attending Provider Physician Primary Care Provider Referring Provider Specialty: Family Practice Address: [address] [place] [address], [address], [address] Email: [email or web address] Visit Number Visit Number 03/29 Discharge Summary Physical Therapy Plan Discharge Physical Therapy Discharge Reasons Goals Met Discharge Comments Called pt this morning and pt thought her appt was at 830am. Pt reports she has not had any headache sinced started therapy. She is able to return her workout class without discomfort. She is satisfied with her progress and agreed to be DC from PT
--- NOTE | 2021-08-30 09:38 | PT-OP ANOTE ---
pt no call and no show.
== END 2021-09-11 11:12 ==
LOC: PHYS 10:30
PROVIDERS: PCP Family Medicine; Referring Provider Family Medicine; Visit Provider Family Medicine
DX: M25.511 Pain in right shoulder (principal); M25.512 Pain in left shoulder; M54.2 Cervicalgia
CPT/HCPCS: 97110; 97140; 97161

== ENCOUNTER → 2021-10-02 07:59 | Outpatient (CLI) | payer OTHER, SELFPAY ==
--- NOTE | 2021-10-02 | DI.MG.S_ITS ---
BILATERAL DIGITAL SCREENING MAMMOGRAM 3D/2D WITH CAD: 10/02/2021 CLINICAL: Routine screening. Comparison is made to exams dated: 07/19/2020 mammogram, 05/06/2019 mammogram, and 05/12/2017 mammogram - [facility]. The tissue of both breasts is heterogeneously dense. This may lower the sensitivity of mammography. Current study was also evaluated with a Computer Aided Detection (CAD) system. No significant masses, calcifications, or other findings are seen in either breast. There has been no significant interval change. IMPRESSION: NEGATIVE There is no mammographic evidence of malignancy. A 1 year screening mammogram is recommended. This exam was interpreted at Station ID: [id number]. NOTE: For mammograms, a report in lay terms will be sent to the patient. Approximately 15% of breast malignancies will not be visualized mammographically. In the management of a palpable breast mass, a negative mammogram must not discourage biopsy of a clinically suspicious lesion. Electronically Signed By: Alon elkins/jewel:10/02/2021 09:09:18 letter sent: Normal Exam ACR BI-RADS Category 1: Negative [id number]
== END ==
PROVIDERS: PCP Family Medicine; Referring Provider Family Medicine; Visit Provider Family Medicine
DX: Z12.31 Encounter for screening mammogram for malignant neoplasm of breast (principal)
CPT/HCPCS: 77063; 77067

== ENCOUNTER → 2022-02-21 12:16 | Outpatient (CLI) | payer OTHER, SELFPAY ==
[2022-02-21 14:58] LABS: Free T4, Direct Thyroxine 1.89 ng/dL (0.78-2.19)
[2022-02-21 15:13] LABS: Thyroid Stimulating Hormone 0.666 uIU/mL (0.47-4.68)
== END ==
PROVIDERS: PCP Family Medicine; Referring Provider Student in an Organized Health Care Education/Training Program; Visit Provider Student in an Organized Health Care Education/Training Program
DX: E03.9 Hypothyroidism, unspecified (principal)
CPT/HCPCS: 36415; 84439; 84443

== ENCOUNTER → 2022-12-11 08:07 | Outpatient (CLI) | payer OTHER, SELFPAY ==
--- NOTE | 2022-12-11 | DI.MG.S_ITS ---
BILATERAL DIGITAL SCREENING MAMMOGRAM 3D/2D WITH CAD: 12/11/2022 CLINICAL: Routine screening. Comparison is made to exams dated: 10/02/2021 mammogram, 07/19/2020 mammogram, and 05/06/2019 mammogram - . Both breasts are heterogeneously dense, which may obscure small masses (category c / 51-75% glandular tissue). Current study was also evaluated with a Computer Aided Detection (CAD) system. No significant masses, calcifications, or other findings are seen in either breast. There has been no significant interval change. IMPRESSION: NEGATIVE There is no mammographic evidence of malignancy. A 1 year screening mammogram is recommended. Based on the Tyrer Cuzick model (a risk assessment model) the patient's lifetime risk is 8.9% and her 10 year risk is 2.4%. According to the ACR, ACS, and NCCN guidelines, an annual breast MRI exam along with mammogram is recommended if the patient's lifetime risk is 20% or greater. This exam was interpreted at Station ID: [id number]. NOTE: For mammograms, a report in lay terms will be sent to the patient. Approximately 15% of breast malignancies will not be visualized mammographically. In the management of a palpable breast mass, a negative mammogram must not discourage biopsy of a clinically suspicious lesion. Electronically Signed By: Elysia [email or web address]/jewel:12/11/2022 13:12:27 letter sent: Normal Exam ACR BI-RADS Category 1: Negative 3341F
== END ==
PROVIDERS: PCP Family Medicine; Referring Provider Family Medicine; Visit Provider Family Medicine
DX: Z12.31 Encounter for screening mammogram for malignant neoplasm of breast (principal)
CPT/HCPCS: 77063; 77067

== ENCOUNTER → 2023-01-01 08:18 | Outpatient (CLI) | payer OTHER, SELFPAY ==
[2023-01-01 08:38] LABS: Hematocrit 37.2 % (36-46); Hemoglobin 12.3 g/dL (12.0-16.0); Mean Corpuscular HGB Conc 33.2 % (30-36); Mean Corpuscular Hemoglobin 29.9 PG (26-34); Platelet Count 237 X10^3/uL (150-400); Red Blood Cell Count 4.13 X10^6/uL (4.0-5.2); Red Cell Distribution Width 13.6 % (11.6-14.8); White Blood Cell Count 3.6 X10^3/uL (4.5-11.0)
[2023-01-01 08:50] LABS: Alanine Aminotransferase 31 IU/L (<35); Albumin 4.6 g/dL (3.5-5.0); Albumin Globulin Ratio 1.4 (1.0-2.8); Alkaline Phosphatase 67 U/L (38-126); Aspartate Aminotransferase 32 IU/L (14-36); BUN Creatinine Ratio 19.5 (6-22); Bilirubin Total 0.8 mg/dL (0.2-1.3); Blood Urea Nitrogen 17 mg/dL (7-17); Calcium 9.8 mg/dL (8.4-10.2); Carbon Dioxide 28 mmol/L (22-32); Chloride 101 mmol/L (98-107); Estimated Glomerular Filt Rate > 60 mL/min (>60); Globulin 3.3 g/dL (1.7-4.1); Glucose 90 mg/dL (70-100); HEMOLYSIS < 15 (0-50); Potassium 4.2 mmol/L (3.4-5.1); Sodium 138 mmol/L (137-145); Total Protein 7.9 g/dL (6.3-8.2)
[2023-01-01 09:07] LABS: Vitamin D 25 Hydroxy (D3) 41.9 ng/mL (30.0-100.0)
[2023-01-01 09:25] LABS: Ferritin 19 ng/mL (11-264)
[2023-01-01 09:30] LABS: TSH w/ Reflex to FT4 0.51 uIU/mL (0.47-4.68)
== END ==
PROVIDERS: PCP Family Medicine; Referring Provider Family Medicine; Visit Provider Family Medicine
DX: D64.9 Anemia, unspecified (principal); E03.9 Hypothyroidism, unspecified; E55.9 Vitamin D deficiency, unspecified
CPT/HCPCS: 36415; 80053; 82306; 82728; 84443; 85027

== ENCOUNTER → 2024-01-13 11:29 | Outpatient (CLI) | payer OTHER, SELFPAY ==
[2024-01-13 13:03] LABS: Appearance Urine UA CLEAR; Bilirubin Urine UA NEGATIVE (NEGATIVE); Color Urine UA YELLOW; Glucose Urine UA NEGATIVE (Negative); Ketones Urine UA NEGATIVE (NEGATIVE); Leukocyte Esterase Urine UA NEGATIVE (NEGATIVE); Nitrite Urine UA NEGATIVE (Negative); Occult Blood Urine UA TRACE-INTACT (Negative); Protein Urine UA NEGATIVE (Negative); Specific Gravity Urine UA <=1.005 (1.000-1.035); Urobilinogen Urine UA 0.2 E.U./dL (0.2)
[2024-01-13 13:06] LABS: Add Manual Diff / Slide Review NO; Basophils Absolute Auto 0 /uL (0-100); Basophils Percent Auto 0.7 % (0-2); Eosinophils Absolute Auto 200 /uL (0-450); Eosinophils Percent Auto 3.5 % (2-4); Hematocrit 33.8 % (36-46); Hemoglobin 11.6 g/dL (12.0-16.0); Lymphocytes Absolute Auto 1300 /uL (1100-4500); Lymphocytes Percent Auto 27.2 % (25-40); Mean Corpuscular HGB Conc 34.2 % (30-36); Mean Corpuscular Hemoglobin 30.2 PG (26-34); Mean Corpuscular Volume 88.1 fL (80-100); Monocytes Absolute Auto 1000 /uL (0-900); Monocytes Percent Auto 19.8 % (3-14); Neutrophils Absolute Auto 2400 /uL (1500-7000); Neutrophils Percent Auto 48.8 % (50-75); Platelet Count 245 X10^3/uL (150-400); Red Blood Cell Count 3.84 X10^6/uL (4.0-5.2); Red Cell Distribution Width 13.5 % (11.6-14.8); White Blood Cell Count 4.8 X10^3/uL (4.5-11.0)
[2024-01-13 13:32] LABS: Lactate (Lactic Acid) 1.2 mmol/L (0.7-2.1)
[2024-01-13 13:36] LABS: Bacteria Urine None Seen; Culture Indicated Urine Cult Not Indicated; RBC Urine 0-1/HPF (0-5/HPF); Squamous Epithelial Cell Urine 0-1 /HPF (0-5/HPF); Urine Volume 10mL (spun); WBC Urine None Seen (0-5/HPF)
[2024-01-13 13:38] LABS: Alanine Aminotransferase 21 IU/L (<35); Albumin Globulin Ratio 1.4 (1.0-2.8); Alkaline Phosphatase 73 U/L (38-126); Aspartate Aminotransferase 29 IU/L (14-36); BUN Creatinine Ratio 9.9 (6-22); Bilirubin Total 0.8 mg/dL (0.2-1.3); Blood Urea Nitrogen 8 mg/dL (7-17); Calcium 9.6 mg/dL (8.4-10.2); Carbon Dioxide 26 mmol/L (22-32); Chloride 101 mmol/L (98-107); Estimated Glomerular Filt Rate > 60 mL/min (>60); Gamma Glutamyl Transpeptidase 13 U/L (12-43); Globulin 2.9 g/dL (1.7-4.1); Glucose 77 mg/dL (70-100); HEMOLYSIS < 15 (0-50); Lipase 61 U/L (23-300); Sodium 137 mmol/L (137-145); Total Protein 6.9 g/dL (6.3-8.2)
[2024-01-13 14:06] LABS: Thyroid Stimulating Hormone 0.157 uIU/mL (0.47-4.68)
== END ==
PROVIDERS: PCP Family Medicine; Referring Provider Family Medicine; Visit Provider Family Medicine
DX: R10.9 Unspecified abdominal pain (principal); E03.9 Hypothyroidism, unspecified
CPT/HCPCS: 36415; 80053; 81001; 82977; 83605; 83690; 84443; 85025

== ENCOUNTER → 2024-04-12 11:31 | Outpatient (CLI) | payer OTHER, SELFPAY ==
[2024-04-12 12:50] LABS: Add Manual Diff / Slide Review NO; Basophils Absolute Auto 100 /uL (0-100); Basophils Percent Auto 1.3 % (0-2); Eosinophils Absolute Auto 200 /uL (0-450); Eosinophils Percent Auto 4.6 % (2-4); Hematocrit 38.6 % (36-46); Hemoglobin 12.9 g/dL (12.0-16.0); Lymphocytes Absolute Auto 1600 /uL (1100-4500); Lymphocytes Percent Auto 38.2 % (25-40); Mean Corpuscular HGB Conc 33.5 % (30-36); Mean Corpuscular Hemoglobin 29.8 PG (26-34); Mean Corpuscular Volume 88.8 fL (80-100); Monocytes Absolute Auto 400 /uL (0-900); Neutrophils Absolute Auto 1900 /uL (1500-7000); Neutrophils Percent Auto 46.9 % (50-75); Platelet Count 224 X10^3/uL (150-400); Red Blood Cell Count 4.35 X10^6/uL (4.0-5.2); Red Cell Distribution Width 13.2 % (11.6-14.8); White Blood Cell Count 4.1 X10^3/uL (4.5-11.0)
[2024-04-12 13:28] LABS: Free T3, Triiodothyronine Free 5.79 pg/mL (2.77-5.27); Free T4, Direct Thyroxine 1.61 ng/dL (0.78-2.19)
[2024-04-12 13:41] LABS: Thyroid Stimulating Hormone 0.038 uIU/mL (0.47-4.68)
[2024-04-12 13:48] LABS: Ferritin 17 ng/mL (11-264)
== END ==
PROVIDERS: PCP Family Medicine; Referring Provider Family Medicine; Visit Provider Family Medicine
DX: E03.9 Hypothyroidism, unspecified (principal); D64.9 Anemia, unspecified
CPT/HCPCS: 36415; 82728; 84439; 84443; 84481; 85025

== ENCOUNTER → 2024-04-21 08:41 | Outpatient (CLI) | payer OTHER, SELFPAY ==
--- NOTE | 2024-04-21 08:42 | DI.MG.S_ITS ---
BILATERAL DIGITAL SCREENING MAMMOGRAM 3D/2D WITH CAD: 04/21/2024 CLINICAL: Routine screening. Comparison is made to exams dated: 12/11/2022 mammogram, 10/02/2021 mammogram, and 07/19/2020 mammogram - [facility]. There are scattered areas of fibroglandular density in both breasts (category b / 25%-50% glandular tissue). Current study was also evaluated with a Computer Aided Detection (CAD) system. No significant masses, calcifications, or other findings are seen in either breast. There has been no significant interval change. IMPRESSION: NEGATIVE There is no mammographic evidence of malignancy. A 1 year screening mammogram is recommended. Based on the Tyrer Cuzick model (a risk assessment model) the patient's lifetime risk is 8.8% and her 10 year risk is 2.5%. According to the ACR, ACS, and NCCN guidelines, an annual breast MRI exam along with mammogram is recommended if the patient's lifetime risk is 20% or greater. This exam was interpreted at Station ID: [id number]. NOTE: For mammograms, a report in lay terms will be sent to the patient. Approximately 15% of breast malignancies will not be visualized mammographically. In the management of a palpable breast mass, a negative mammogram must not discourage biopsy of a clinically suspicious lesion. Electronically Signed By: Elysia [email or web address]/jewel:04/21/2024 10:01:51 letter sent: Normal Exam ACR BI-RADS Category 1: Negative 3341F
== END ==
PROVIDERS: PCP Family Medicine; Referring Provider Family Medicine; Visit Provider Family Medicine
DX: Z12.31 Encounter for screening mammogram for malignant neoplasm of breast (principal); R92.323 Mammographic fibroglandular density, bilateral breasts
CPT/HCPCS: 77063; 77067

== ENCOUNTER → 2024-06-21 10:58 | Outpatient (CLI) | payer OTHER, SELFPAY ==
[2024-06-21 12:54] LABS: TSH w/ Reflex to FT4 0.34 uIU/mL (0.47-4.68)
[2024-06-21 13:31] LABS: Free T4, Direct Thyroxine 1.66 ng/dL (0.78-2.19)
[2024-06-21 15:02] LABS: Free T3, Triiodothyronine Free 3.11 pg/mL (2.77-5.27)
== END ==
PROVIDERS: PCP Family Medicine; Referring Provider Family Medicine; Visit Provider Family Medicine
DX: E03.9 Hypothyroidism, unspecified (principal)
CPT/HCPCS: 36415; 84439; 84443; 84481

== ENCOUNTER → 2025-01-10 14:20 | Outpatient (CLI) | payer OTHER, SELFPAY ==
[2025-01-10 14:36] LABS: Appearance Urine UA CLEAR; Bilirubin Urine UA NEGATIVE (NEGATIVE); Color Urine UA YELLOW; Glucose Urine UA NEGATIVE (Negative); Ketones Urine UA NEGATIVE (NEGATIVE); Leukocyte Esterase Urine UA 1+ (NEGATIVE); Nitrite Urine UA NEGATIVE (Negative); Occult Blood Urine UA 3+ (Negative); Protein Urine UA NEGATIVE (Negative); Specific Gravity Urine UA <=1.005 (1.000-1.035); Urobilinogen Urine UA 0.2 E.U./dL (0.2)
[2025-01-10 14:48] LABS: Bacteria Urine Few (2-10); Culture Indicated Urine Specimen Cultured; RBC Urine 0-1/HPF (0-5/HPF); Squamous Epithelial Cell Urine 0-1 /HPF (0-5/HPF); Urine Volume 10mL (spun); WBC Urine 1-5/HPF (0-5/HPF)
== END ==
PROVIDERS: PCP Family Medicine; Referring Provider Family Medicine; Visit Provider Family Medicine
DX: R31.9 Hematuria, unspecified (principal)
CPT/HCPCS: 81001; 87086

== ENCOUNTER → 2025-02-16 12:25 | Outpatient (CLI) | payer OTHER, SELFPAY ==
[2025-02-16 13:05] LABS: Cholesterol 245 mg/dL (140-199); HDL Cholesterol 74 mg/dL (40-60); LDL Cholesterol Calculated 153 mg/dL (<100); Triglycerides 88 mg/dL (35-150)
[2025-02-16 13:23] LABS: Free T3, Triiodothyronine Free 5.05 pg/mL (2.77-5.27); Free T4, Direct Thyroxine 1.77 ng/dL (0.78-2.19)
[2025-02-16 13:37] LABS: Thyroid Stimulating Hormone 0.325 uIU/mL (0.47-4.68)
[2025-02-17 08:36] LABS: Dehydroepiandrosterone Sulfate 87.9 ug/dL (29.4-220.5)
== END ==
LOC: LAB 12:26
PROVIDERS: PCP Family Medicine; Referring Provider Family Medicine; Visit Provider Family Medicine
DX: E03.9 Hypothyroidism, unspecified (principal); Z13.220 Encounter for screening for lipoid disorders; M85.80 Other specified disorders of bone density and structure, unspecified site; Z79.890 Hormone replacement therapy
CPT/HCPCS: 80061; 82523; 82627; 82670; 84439; 84443; 84481

== ENCOUNTER → 2025-06-16 11:39 | Outpatient (CLI) | payer OTHER, SELFPAY ==
--- NOTE | 2025-06-16 11:39 | DI.MG.S_ITS ---
MM screening mammo BI: 06/16/2025. BI-RADS: 1 CLINICAL: 54-year old female for bilateral screening mammogram. Tyrer-Cuzick lifetime risk of 10.6%. No personal or first-degree family history of breast cancer. PRIOR EXAMS 04/21/2024, 12/11/2022, 10/02/2021, 07/19/2020. MAMMOGRAPHY TECHNIQUE: 2D and 3D (tomosynthesis) digital mammographic views obtained, with additional images as needed for full coverage. Current study was also evaluated with a Computer Aided Detection (CAD) system. DENSITY C. The breasts are heterogeneously dense, which may obscure small masses. MAMMOGRAPHY FINDINGS Bilateral: No suspicious mass, asymmetry, microcalcification, or other abnormality seen. IMPRESSION: * No evidence of malignancy. RECOMMENDATIONS Bilateral * Annual screening mammography. OVERALL ASSESSMENT CATEGORY BI-RADS-1: Negative. The [employer] recommends annual screening mammography beginning at age 40 for women with average risk of breast cancer. ELECTRONICALLY SIGNED: Yue Aceves M.D. on 06/16/2025 at 05:50:49 PM PT Interpreting Station ID: [id number]
== END ==
PROVIDERS: PCP Family Medicine; Referring Provider Family Medicine; Visit Provider Family Medicine
DX: Z12.31 Encounter for screening mammogram for malignant neoplasm of breast (principal); R92.333 Mammographic heterogeneous density, bilateral breasts
CPT/HCPCS: 77063; 77067